=== PATIENT | female | born 1960 | race American Indian/Alaskan Native ===

== ENCOUNTER 2019-01-25 05:55 | Day surgery (SDC) | payer OTHER ==
[2019-01-25] MEDS ORDERED: Lactated Ringer's 1,000 ML IV ONE (07:10)
[2019-01-25] MEDS ORDERED: Propofol 10 mg/ml Inj (20 ML) ONE (07:13)
[2019-01-25] MEDS ORDERED: Succinylcholine Chloride 20 mg/ml Syr (5 ml) IV ONE (07:13)
[2019-01-25] MEDS ORDERED: Rocuronium 10 mg/ml (5 ml) ONE (07:13)
[2019-01-25] MEDS ORDERED: Lidocaine 4% (Laryng-O-Jet) Kit MM ONE (07:14)
[2019-01-25] MEDS ORDERED: MethylPREDNISolone Depo 40 mg/ml Inj ONE (07:14)
[2019-01-25] MEDS ORDERED: EPINEPHrine 1 mg/ml (1:1000) Inj ONE ×2 (07:15)
[2019-01-25] MEDS ORDERED: Lidocaine 1% Inj (20ml) ONE (07:16)
[2019-01-25] MEDS ORDERED: Bupivacaine 0.5% Inj(30mL) ONE (07:16)
[2019-01-25 07:21] VITALS: BMI 35.7
[2019-01-25] MEDS ORDERED: EPINEPHrine 1:1000 Nasal Sol(30mL) ONE (07:23)
--- NOTE | 2019-01-25 07:53 | CP.PCM.PN ---
Subjective - Date & Time of Evaluation Date of Evaluation: 01/25/19 Time of Evaluation: 07:53 - Subjective Subjective: [place] [employer] patient report reviewed, no CDS. Patient counseled on the risks of addiction, physical or psychological dependence, and overdose associated with opioid drugs and the danger of taking opioid drugs with alcohol and other central nervous system depressants, and cautioned patient on storage and disposal. Objective - Vital Signs/Intake and Output Vital Signs (last 24 hours): Temp Pulse Resp BP Pulse Ox 98 F 86 18 142/80 100 01/25/19 07:00 01/25/19 07:00 01/25/19 07:00 01/25/19 07:00 01/25/19 07:00
[2019-01-25] MEDS ORDERED: Albuterol HFA 90 mcg/actuation (8 g) ONE (08:09)
[2019-01-25] MEDS ORDERED: Dexamethasone 4 mg/1 ml ONE (08:11)
[2019-01-25] MEDS ORDERED: Sodium Chloride 0.9% 10 ML IV ONE (08:18)
[2019-01-25] MEDS ORDERED: ePHEDrine 50 mg/ml Inj ONE (08:18)
[2019-01-25] MEDS: Bacitracin Ointment 30 GM TUBE ONE ×2 (08:26→09:15)
[2019-01-25] MEDS ORDERED: Morphine 5 mg/10 ml preservative-free Inj(Duramorph) ONE (08:56)
[2019-01-25] MEDS ORDERED: Oxycodone/Acetaminophen 5/325 mg Tab PO PRN (09:00)
[2019-01-25] MEDS ORDERED: Neostigmine 1:1000 (1 mg/ml) Inj ONE (09:07)
[2019-01-25] MEDS ORDERED: HYDROmorphone 0.5 mg/0.5 ml ISec IVP PRN (09:35)
--- NOTE | 2019-01-25 13:34 | PCM.SURG1 ---
Surgeon's Initial Post Op Note - Surgeon's Notes Surgeon: Arturo Teacher Visually Impaired: MARYANN Bautista Type of Anesthesia: General Endo Anesthesia Administered By: DR Lucas Pre-Operative Diagnosis: internal derangemnt L knee Operative Findings: tear medial meniscus/tear lateral meniscus. tricompartmental synovitis Post-Operative Diagnosis: as above Operation Performed: arthroscopic [partial medial/lateral meniscectomy. arthroscopic tricompartmental synovectomy. intraarticular injection Specimen/Specimens Removed: synvoium/cartilage Estimated Blood Loss: EBL {In ML}: 5 Blood Products Given: N/A Drains Used: No Drains Post-Op Condition: Fair Date of Surgery/Procedure: 01/25/19 Time of Surgery/Procedure: 08:35 (time in room 7:40/anaetsheisa indcution time 7:40)
[2019-01-25 14:08] VITALS: BP 133/86; PULSE 95; RESP 20; TEMP 98; O2SAT 98
--- NOTE | 2019-01-29 15:25 | OP ---
PROCEDURE DATE: 01/25/2019 PREOPERATIVE DIAGNOSIS: Internal derangement of left knee. POSTOPERATIVE DIAGNOSES: 1. Tear of medial meniscus and tear of lateral meniscus. 2. Tricompartmental synovitis. PROCEDURE: 1. Surgical arthroscopy, partial medial and lateral meniscectomy. 2. Surgical arthroscopy, partial tricompartmental synovectomy. 3. Intra-articular injection. SURGEON: Edmund Morris MD QUICK MIXER OPERATOR: SHERRY Campos, certified registered nursing hearing aid assistant. TYPE OF ANESTHESIA: General endotracheal anesthesia. ANESTHESIA ADMINISTERED BY: Dr. Adam Lucas. INCISION TIME: 08:34 TIME IN THE ROOM: 07:40 END TIME: 09:20 HISTORY: Nadja Moulton is a 58-year-old woman with left knee pain and restricted range of motion over the last several months. The patient presents after failure of conservative management including intra-articular injection, activity modification and therapy. Pros, cons, risks and benefits of surgical arthroscopy were discussed after failure of conservative management, possibility of mechanical failure, infection later, secondary or even tertiary surgery was discussed. Possibility of knee replacement convert was discussed. TOURNIQUET TIME: 43 minutes. ESTIMATED BLOOD LOSS: 5 mL. COMPLICATIONS: No complications. DRAINS: No drains. OPERATIVE INDICATIONS: As above. Pros, cons, risks and benefits of surgical approach were discussed. Possibility of mechanical failure, infection, thromboembolic disease and possibility of secondary or tertiary surgery was discussed. DESCRIPTION OF PROCEDURE: After having obtained informed consent, after having identified side, site and procedure and a critical pause/time-out, after the satisfactory induction of the anesthetic, the patient was identified as Nadja Moulton in the supine position with all bony prominences well padded. The left lower extremity was prepped and free draped in the usual fashion for lower extremity surgery. The tourniquet had been applied, but was not yet inflated. After exsanguinating the limb using a 6-inch Esmarch bandage, the tourniquet which had been applied was inflated to 350 mmHg. The joint was insufflated with 10 mL of 1% lidocaine without epinephrine. Using a #11-blade followed by spreading, following introduction of the blunt trocar, the arthroscope was introduced. Examination the joint commences. There was found to be a marked tricompartmental synovitis, both obscuring visualization and offering a great deal of inflammatory tissue. Triangulation was accomplished using #18-gauge spinal needle, followed by #11 blade, followed by spreading, followed by introduction of blunt trocar. With the arthroscope anterolaterally, a careful partial tricompartmental synovectomy was accomplished, both to improve visualization and to ablate irritative tissue. With the arthroscope anterolaterally, a thorough tricompartmental synovectomy was accomplished. Bleeding points were controlled with the arthroscopic wand. With the arthroscope anterolaterally, with the surgeon exerting a gentle valgus stress, there was found to be a tear of the inner free edge of the left medial meniscus. Using a combination of the straight-biting basket forceps and the side-biting basket forceps, a partial medial meniscectomy was accomplished. The anterior cruciate ligament was found to be intact. There was found to be evidence of notch osteophytes. The arthroscope was transferred anteromedially and the deep posterior horn of the medial meniscus was identified. A thorough partial medial meniscectomy was accomplished using the straight-biting basket forceps and the side-biting basket forceps. The inner free edge was smoothed using the arthroscopic wand with no injury to the articular cartilage. The anterior cruciate ligament was probed and found to be intact. The arthroscope was again placed anterolaterally, and with the knee in [id number] position, the lateral joint was exposed to advantage. There was found to be a tear of the inner free edge of the lateral meniscus. With the arthroscope anterolaterally, using a combination of the straight-biting basket forceps and the side-biting basket forceps, a partial lateral meniscectomy was accomplished. The inner free edge was smoothed using the arthroscopic wand. Partial tricompartmental synovectomy was completed with the arthroscopic shaver. The bleeding points were controlled with the arthroscopic wand. The inner free edge of the medial meniscus was again evaluated. There was found to be a successful subtotal meniscectomy. With the arthroscope anterolaterally, the inner free edge of the lateral meniscus was smoothed, there was a successful subtotal lateral meniscectomy. The anterior cruciate ligament was intact. There was no evidence of marked chondral damage. The portals were closed with Vicryl and nylon. Intra-articular injection was offered with Marcaine, Duramorph, and Depo-Medrol. Honorio Crouch compression dressing was applied. Left knee is the correct knee. Edmudn Morris MD [facility] # [phone]
== END 2019-01-25 14:00 | disposition home or self-care (01) ==
LOC: H.OPSURG 05:55
PROVIDERS: ATTEND Orthopaedic Surgery
DX: M17.12 Unilateral primary osteoarthritis, left knee (principal); M19.90 Unspecified osteoarthritis, unspecified site
CPT/HCPCS: 29880; 88304; 97116; 97161; G8978; G8979; G8980; J0171; J1030; J1100; J1170; J2001; J2405; J2704; J2710; J3010; J7030; J7120